=== PATIENT | male | born 1980 | race Caucasian/White ===

== ENCOUNTER 2017-11-09 11:48 | Emergency (ER) | payer OTHER ==
[~2017-11-09] VITALS: Ht 182.9 cm; Wt 86.4 kg
[2017-11-09 12:55] LABS: INFLUENZA TYPE A NEGATIVE FOR TYPE A (NEGATIVE); INFLUENZA TYPE B NEGATIVE FOR TYPE B (NEGATIVE)
[2017-11-09] MEDS ORDERED: IBUPROFEN 800 MG TABLET PO ONE (15:45)
[2017-11-09 15:50] VITALS: BP 112/68
== END 2017-11-09 16:14 | disposition home or self-care (01) ==
LOC: EMS 11:49
DX: J06.9 Acute upper respiratory infection, unspecified (principal)
CPT/HCPCS: 87804; 99284